=== PATIENT | female | born 1965 | race African-American/Black ===

== ENCOUNTER 2017-12-18 12:43 | Emergency (ER) | payer OTHER ==
[2017-12-18] MEDS ORDERED: DIPHENHYDRAMINE 50 MG/ML VIAL ONE (12:57)
[2017-12-18] MEDS ORDERED: NA CHLORIDE 0.9% 1,000 ML ONE (12:58)
[2017-12-18] MEDS ORDERED: FAMOTIDINE 20 MG/2 ML VIAL IV ONE (13:10)
--- NOTE | 2017-12-18 13:50 | EDPHYS ---
Physician Documentation [facility] Name: Daisy Ni Age: 52 yrs Sex: Female : 1965 Arrival Date: 12/18/2017 Time: 12:45 Bed 16 Private MD: Jelani Wagner B ED Physician Jarvis Bey HPI: 12/18 13:31 This 52 yrs old Black Female presents to ER via Ambulatory with complaints of Hives, kb THROAT SWELLING. 13:31 The patient presents with itching, rash, that is diffuse. Onset: The symptoms/episode kb began/occurred last night, and became worse. Associated signs and symptoms: Pertinent positives: hives, rash, Pertinent negatives: abdominal pain, Altered mental status chest pain, dysphagia, fever, headache, Light headed nausea, shortness of breath, swelling, Syncope vomiting. Possible causes: The patient has no known obvious cause for the symptoms. At home the patient or guardian has treated the symptoms with nothing. Severity of symptoms: At their worst the symptoms were mild moderate in the emergency department the symptoms are unchanged. The patient has not experienced similar symptoms in the past. The patient has been recently seen at an urgent care, today, for similar complaints. Pt states she started getting a rash last night, took benadryl and went to sleep. Woke up with worsening rash so she went to urgent care at 1030. States they gave her steroid shots and sent her home. States she was resting at home and the rash was getting worse so she came in to the ER. 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 - Social history:: Smoking status: unknown. ROS: 13:30 Constitutional: Negative for fever, chills, and weight loss, Cardiovascular: Negative kb for chest pain, palpitations, and edema, Respiratory: Negative for shortness of breath, cough, wheezing, and pleuritic chest pain, Abdomen/GI: Negative for abdominal pain, nausea, vomiting, diarrhea, and constipation, Back: Negative for injury and pain, : Negative for injury, bleeding, discharge, and swelling, MS/Extremity: Negative for injury and deformity, Neuro: Negative for headache, weakness, numbness, tingling, and seizure. 13:30 Skin: Positive for rash, diffusely. Exam: 13:30 Constitutional: This is a well developed, well nourished patient who is awake, alert, kb and in no acute distress. Head/Face: Normocephalic, atraumatic. Chest/axilla: Normal chest wall appearance and motion. Nontender with no deformity. No lesions are appreciated. Cardiovascular: Regular rate and rhythm with a normal S1 and S2. No gallops, murmurs, or rubs. Normal PMI, no JVD. No pulse deficits. Respiratory: Lungs have equal breath sounds bilaterally, clear to auscultation and percussion. No rales, rhonchi or wheezes noted. No increased work of breathing, no retractions or nasal flaring. Abdomen/GI: Soft, non-tender, with normal bowel sounds. No distension or tympany. No guarding or rebound. No evidence of tenderness throughout. MS/ Extremity: Pulses equal, no cyanosis. Neurovascular intact. Full, normal range of motion. Neuro: Awake and alert, GCS 15, oriented to person, place, time, and situation. Cranial nerves II-XII grossly intact. Motor strength 5/5 in all extremities. Sensory grossly intact. Cerebellar exam normal. Normal gait. 13:30 Skin: urticaria, and is diffusely located. Vital Signs: 12:51 Pulse 110; Resp 19; Temp 98.4(TE); Pulse Ox 100% on R/A; Weight 90.72 kg; Height 5 ft. la1 5 in. (165.10 cm); 12:52 BP 129 / 99; la1 13:19 BP 133 / 91; Pulse 102; Resp 18 S; Pulse Ox 98% on R/A; Pain 0/10; iw 13:55 BP 132 / 86; Pulse 97; Resp 18 S; Pulse Ox 97% on R/A; iw 12:51 Body Mass Index 33.28 (90.72 kg, 165.10 cm) la1 MDM: 12:53 Patient medically screened. kb 13:29 Data reviewed: vital signs, nurses notes. Data interpreted: Pulse oximetry: on room air kb is 98 %. Interpretation: normal. 13:37 Counseling: I had a detailed discussion with the patient and/or guardian regarding: the kb historical points, exam findings, and any diagnostic results supporting the discharge/admit diagnosis, the need for outpatient follow up, a family practitioner, to return to the emergency department if symptoms worsen or persist or if there are any questions or concerns that arise at home. Response to treatment: the patient's symptoms have markedly improved after treatment. 12/18 12:53 Order name: IV Start; Complete Time: 13:02 kb Administered Medications: 13:01 Drug: NS 0.9% 1000 ml Route: IV; Rate: 1000 ml; Site: left antecubital; iw 14:14 Follow up: IV Status: Completed infusion iw 13:02 Drug: Benadryl 25 mg Route: IVP; Site: left antecubital; iw 14:15 Follow up: Response: No adverse reaction; Marked relief of symptoms iw 13:15 Drug: Pepcid 20 mg Route: IVP; Site: left antecubital; iw 14:15 Follow up: Response: No adverse reaction iw Disposition: 12/18/17 13:50 Discharged to Home. Impression: Urticaria. - Condition is Stable. - Discharge Instructions: Hives, [id number]. - Prescriptions for Pepcid 20 mg Oral Tablet - take 1 tablet by ORAL route every 12 hours for 5 days; 10 tablet. - Medication Reconciliation Form, Thank You Letter, Antibiotic Education, Prescription Opioid Use form. - Follow up: Emergency Department; When: As needed; Reason: Worsening of condition. Follow up: Private Physician; When: 2 - 3 days; Reason: Recheck today's complaints, Continuance of care, Re-evaluation by your physician. Addendum: 12/20/2017 08:54 Co-signature as Attending Physician, Jarvis Bey MD I agree with the assessment and c gaston plan of care. Signatures: Crystal Wright, DANAE-Parviz FINK-Jarvis Sanchez MD MD cha Williams, Irene, RN RN Osman Sheldon RN RN la1
--- NOTE | 2017-12-18 13:50 | ER ---
Nurse's Notes [facility] Name: Daisy Ni Age: 52 yrs Sex: Female : 1965 Arrival Date: 12/18/2017 Time: 12:45 Bed 16 Private MD: Jelani Wagner B Diagnosis: Urticaria Presentation: 12/18 12:49 Presenting complaint: Patient states: I have had hives and I went to urgent care and la1 they gave me a steroid shot and I am still having hives. Airway patent, respirations even and unlabored. Transition of care: patient was not received from another setting of care. Onset: The symptoms/episode began/occurred gradually. Anaphylaxis evaluation, no signs or symptoms of anaphylaxis were noted. Onset of symptoms was December 18, 2017. Initial Sepsis Screen: Does the patient meet any 2 criteria? No. Patient's initial sepsis screen is negative. Does the patient have a suspected source of infection? No. Patient's initial sepsis screen is negative. Care prior to arrival: None. 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 - Social history:: Smoking status: unknown. Screenin:19 Abuse screen: Denies threats or abuse. Denies injuries from another. Nutritional iw screening: No deficits noted. Tuberculosis screening: No symptoms or risk factors identified. Fall Risk IV access (20 points). Assessment: 13:00 General: Appears in no apparent distress. Behavior is calm, cooperative. Pain: Denies iw pain. Neuro: Level of Consciousness is awake, alert, obeys commands, Oriented to person, place, time, situation, Moves all extremities. Full function. Respiratory: Airway is patent Respiratory effort is even, unlabored, Breath sounds are clear bilaterally. GI: No signs and/or symptoms were reported involving the gastrointestinal system. Derm: Rash noted that is itchy, papular, urticaria, on chest, abdomen, right arm and left arm. Musculoskeletal: Range of motion: intact in all extremities. 13:55 Reassessment: Patient appears in no apparent distress at this time. Patient and/or iw family updated on plan of care and expected duration. Pain level reassessed. Patient is alert, oriented x 3, equal unlabored respirations, skin warm/dry/pink. Patient states feeling better. Patient states symptoms have improved. Vital Signs: 12:51 Pulse 110; Resp 19; Temp 98.4(TE); Pulse Ox 100% on R/A; Weight 90.72 kg; Height 5 ft. la1 5 in. (165.10 cm); 12:52 BP 129 / 99; la1 13:19 BP 133 / 91; Pulse 102; Resp 18 S; Pulse Ox 98% on R/A; Pain 0/10; iw 13:55 BP 132 / 86; Pulse 97; Resp 18 S; Pulse Ox 97% on R/A; iw 12:51 Body Mass Index 33.28 (90.72 kg, 165.10 cm) la1 ED Course: 12:45 Patient arrived in ED. rg4 12:46 Jelani Wagner MD is Private Physician. rg4 12:48 Crystal Wright FNP-C [facility]. kb 12:48 Jarvis Bey MD is Attending Physician. kb 12:50 Triage completed. la1 12:50 Inserted saline lock: 20 gauge in left antecubital area, using aseptic technique. iw 12:51 Arm band placed on left wrist. la1 12:53 Jorge A Mcdonald LVN is Primary Nurse. em 13:19 Patient has correct armband on for positive identification. iw 14:13 No provider procedures requiring assistance completed. IV discontinued, intact, No iw redness/swelling at site. Pressure dressing applied. Administered Medications: 13:01 Drug: NS 0.9% 1000 ml Route: IV; Rate: 1000 ml; Site: left antecubital; iw 14:14 Follow up: IV Status: Completed infusion iw 13:02 Drug: Benadryl 25 mg Route: IVP; Site: left antecubital; iw 14:15 Follow up: Response: No adverse reaction; Marked relief of symptoms iw 13:15 Drug: Pepcid 20 mg Route: IVP; Site: left antecubital; iw 14:15 Follow up: Response: No adverse reaction iw Outcome: 13:50 Discharge ordered by MD. kb 14:13 Discharged to home ambulatory, with family. iw 14:13 Condition: good 14:13 Discharge instructions given to patient, family, Instructed on discharge instructions, follow up and referral plans. medication usage, Demonstrated understanding of instructions, follow-up care, medications, Prescriptions given X 1. 14:16 Patient left the ED. iw Signatures: Crystla Wright, WOOD FLOORING SPECIALIST-C WOOD FLOORING SPECIALIST-Jorge A Franco, BUSINESS OPERATIONS CONSULTANT BUSINESS OPERATIONS CONSULTANT Annita Devlin RN RN iw Attema, Lee, RN RN Becky Santiago rg4
== END 2017-12-18 14:16 | disposition home or self-care (01) ==
LOC: ER 12:43
DX: L50.9 Urticaria, unspecified (principal); I10 Essential (primary) hypertension; Z88.2 Allergy status to sulfonamides
CPT/HCPCS: 96361; 96374; 96375; 99283; J7030